=== PATIENT | female | born 1990 | race Caucasian/White ===

== ENCOUNTER 2017-12-17 01:15 | Outpatient (CLI) | payer BC ==
[2017-12-17 02:01] VITALS: BP 117/68; PULSE 107; RESP 16; TEMP 97.6
--- NOTE | 2017-12-17 03:13 | P.MSEPDOC ---
Presenting Problems - Arrival Data Date of Arrival on Unit: 12/17/17 Time of Arrival on Unit: 01:19 Mode of Transport: Wheelchair - Complaint OB-Reason for Admission/Chief Complaint: Other Comment: URI, ear infection, sinus sx. cramping since 1000, mild, with activity , since coughing. no pain when sitting down. Medical History - Information : 2 Para: 1 Term: 1 : 0 Abortions: Spontaneous or Elective: 0 Number of Living Children: 1 - Gestational Age Gestational Age by ANJALI (wks/days): 22 Weeks and 3 Days Review of Systems - Review of Systems Constitutional: No problems Breast: No problems ENT: Sore throat, Cough, Nasal congestion Cardiovascular: No problems Respiratory: No problems Gastrointestinal: No problems Genitourinary: No problems Musculoskeletal: No problems Neurological: No problems Skin: No problems Vital Signs - Temperature Temperature: 97.6 F Temperature Source: Temporal Artery Scan - Pulse Right Pulse Rate: 107 Pulse Assessment Method: Pulse Oximetry - Respirations Respiratory Rate: 16 O2 Sat by Pulse Oximetry: 98 - Blood Pressure Right Arm Blood Pressure: 117/68 Blood Pressure Mean: 84 Blood Pressure Source: Automatic Cuff Medical Screen Scoring (Pre) - Cervical Exam Dilation: Exam Deferred Effacement: Exam Deferred - Uterine Contractions Frequency: N/A Duration: N/A Intensity: N/A - Maternal Vital Signs Maternal Temperature: N/A Signs of Preeclampsia: N/A Maternal Respirations: N/A - Pain Assessment Pain Location and Character: Abdomen Pain Scale Used: Numeric (1 - 10) Pain Intensity: 0 Pain Management Goal: 3 Pain Description: *Acute, Cramping Pain Frequency: Occasional Pain Duration: 14 Pain Duration Units: Hours Pain Behavior: Vocalization Pain Aggravating Factors: Activity, Coughing - Maternal Trauma Maternal Trauma: N/A - Assessment Baseline FHR: 160 - Total Score Total Score (Pre): 0 - Level of Risk Level of Risk: Low (0-5) Physician Notification (Pre) - Physician Notified Physician Notified Date: 12/17/17 Physician Notified Time: 01:44 Physician/Practitioner Notifed:: Dr Abernathy - Notification Comment Comment: reported on pts c/o URI sx, cramping occasionally with activity, since 1000. reported on abd being soft and non tender, afebrile, vitals stable, +fm, no bleeding or leaking. orders to d/c and encourage to f/u in ER for URI. Disposition - Disposition OB Disposition: Discharge to home, Written follow up instructions reviewed Discharge Date: 12/17/17 Discharge Time: 01:54 I agree with the RN Medical Screening Exam: Yes Risk & Benefit of care provided described in d/c instruction: Yes Diagnosis: COUGH
== END 2017-12-17 01:54 | disposition home or self-care (01) ==
LOC: FBPOP 01:15
PROVIDERS: ATTEND Obstetrics & Gynecology
DX: O99.89 Other specified diseases and conditions complicating pregnancy, childbirth and the puerperium (principal); R05 Cough; H66.90 Otitis media, unspecified, unspecified ear; Z3A.22 22 weeks gestation of pregnancy
CPT/HCPCS: 99213

== ENCOUNTER 2017-12-17 01:55 | Emergency (ER) | payer BC ==
[2017-12-17] MEDS ORDERED: AMOXICILLIN 500MG STARTER PACK 3 CAP BTL PO STA (02:45)
[2017-12-17] MEDS ORDERED: ACETAMINOPHEN TAB 500 MG TAB PO STA (02:45)
--- NOTE | 2017-12-17 02:51 | ED ---
URI HPI - General Chief Complaint: Upper Respiratory Infection Stated Complaint: Chest Pain/ENT Time Seen by Provider: 12/17/17 02:11 Source: patient, RN notes reviewed, old records reviewed Mode of arrival: ambulatory Limitations: no limitations - History of Present Illness Initial Comments: Patient is a 27 year old female with 4 days of right ear pain, cough , congestion, and sore throat. She is 21 weeks . She states she was cleared by labor adn delivery, due to cramping she had earlier today. She denies fever or chills. She reports she felt a bit dizzy earlier today and felt as if the room was spinning. She has not taken tylenol or other medication due to . - Related Data Home Medications Medication Instructions Recorded Confirmed Pnv,Calcium 72/Iron/Folic Acid 1 tab PO DAILY 02/15/16 12/17/17 [ Plus Tablet] Allergies Allergy/AdvReac Type Severity Reaction Status Date / Time No Known Allergies Allergy Verified 12/17/17 02:02 Review of Systems ROS Statement: Those systems with pertinent positive or pertinent negative responses have been documented in the HPI. ROS Other: All systems not noted in ROS Statement are negative. Constitutional: Denies: fever, chills Eyes: Denies: eye pain ENT: Reports: ear pain, throat pain. Denies: dental pain, hearing loss, epistaxis Respiratory: Reports: cough. Denies: dyspnea Cardiovascular: Denies: chest pain, palpitations Endocrine: Reports: fatigue Gastrointestinal: Denies: abdominal pain, nausea Genitourinary: Denies: urgency, dysuria Musculoskeletal: Denies: back pain Skin: Denies: lesions Neurological: Denies: weakness Psychiatric: Denies: anxiety, depression Hematological/Lymphatic: Denies: easy bleeding Past Medical History Past Medical History: No Reported History Additional Past Medical History / Comment(s): OB history: This is her first and she has had care with me since 13 weeks. EDC by 13 week US. B+, abs neg, Rub Imm, RPR NR, Hep B neg, HIV NR. normal anatomy US. normal 1hr GTT. GBS neg. History of Any Multi-Drug Resistant Organisms: None Reported Additional Past Surgical History / Comment(s): nose 2007 Past Anesthesia/Blood Transfusion Reactions: No Reported Reaction Past Psychological History: No Psychological Hx Reported Smoking Status: Never smoker Past Alcohol Use History: None Reported Past Drug Use History: None Reported - Past Family History Mother Family Medical History: No Reported History General Exam - General Exam Comments Initial Comments: This is a 27 year old female, currently 21 weeks . No distress. Limitations: no limitations General appearance: alert, in no apparent distress Head exam: Present: atraumatic, normocephalic, normal inspection Eye exam: Present: normal appearance, PERRL, EOMI. Absent: scleral icterus, conjunctival injection, periorbital swelling ENT exam: Present: normal exam, normal oropharynx, mucous membranes moist. Absent: TM's normal bilaterally (Erythema in right TM with effusion fluid level noted. ) Neck exam: Present: normal inspection, lymphadenopathy (right tonsilar). Absent : tenderness, meningismus Respiratory exam: Present: normal lung sounds bilaterally. Absent: respiratory distress, wheezes, rales, rhonchi, stridor Cardiovascular Exam: Present: regular rate, normal rhythm, normal heart sounds. Absent: systolic murmur, diastolic murmur, rubs, gallop, clicks GI/Abdominal exam: Present: soft, normal bowel sounds. Absent: distended, tenderness, guarding, rebound, rigid Extremities exam: Present: normal inspection, full ROM, normal capillary refill. Absent: tenderness, pedal edema, joint swelling, calf tenderness Neurological exam: Present: alert, oriented X3, CN II-XII intact Psychiatric exam: Present: normal affect, normal mood Skin exam: Present: warm, dry, intact, normal color. Absent: rash Course Vital Signs 12/17/17 12/17/17 01:58 02:54 Temperature 97.7 F 97 F L Pulse Rate 107 H 78 Respiratory 20 18 Rate Blood Pressure 109/71 131/71 O2 Sat by Pulse 98 97 Oximetry Medical Decision Making - Medical Decision Making Patient is a 27 year old female with 4 days of right ear pain, cough ,congestion , and sore throat. She is 21 weeks . She states she was cleared by labor adn delivery, due to cramping she had earlier today. She denies fever or chills. She reports she felt a bit dizzy earlier today and felt as if the room was spinning. Patient does have right otitis media, lymphadenopathy noted. Dsicussed could be viral, and patient dizziness is likely related to vertigo due to ear infection. Lungs are clear. Discussed at this time to treat patient symptoms and will treat with amoxicillin, benadryl for decongestant, and tylenol. Discussed strict return parameters and all questions answered. Disposition Clinical Impression: Right otitis media Disposition: HOME SELF-CARE Condition: Good Instructions: Otitis Media (ED) Additional Instructions: Patient to takeTylenol for her pain. Patient also take Benadryl. Return to the emergency department if any alarming signs or symptoms occur. Referrals: None,Stated [Primary Care Provider] - 1-2 days Lexi Hernandez MD [STAFF PHYSICIAN] - 1-2 days Time of Disposition: 02:50
[2017-12-17 02:55] VITALS: BP 131/71; PULSE 78; RESP 18; TEMP 97
== END 2017-12-17 02:55 | disposition home or self-care (01) ==
LOC: EC 01:55
DX: O99.89 Other specified diseases and conditions complicating pregnancy, childbirth and the puerperium (principal); H66.91 Otitis media, unspecified, right ear; R59.0 Localized enlarged lymph nodes; Z3A.21 21 weeks gestation of pregnancy; Z79.899 Other long term (current) drug therapy
CPT/HCPCS: 99283

== ENCOUNTER 2018-04-04 11:01 | Outpatient (CLI) | payer BC ==
[2018-04-04 11:25] VITALS: BP 106/62; PULSE 98; RESP 16; TEMP 97.3
--- NOTE | 2018-04-05 08:09 | P.MSEPDOC ---
Presenting Problems - Arrival Data Date of Arrival on Unit: 04/04/18 Time of Arrival on Unit: 11:00 Mode of Transport: Ambulatory - Complaint OB-Reason for Admission/Chief Complaint: NST Medical History - Information : 2 Para: 1 Term: 1 : 0 Abortions: Spontaneous or Elective: 0 Number of Living Children: 1 - Gestational Age Gestational Age by ANJALI (wks/days): 36 Weeks and 2 Days - History Comment: cholestasis of Review of Systems - Review of Systems Constitutional: No problems Breast: No problems ENT: No problems Cardiovascular: No problems Respiratory: No problems Gastrointestinal: No problems Genitourinary: No problems Musculoskeletal: No problems Neurological: No problems Skin: Itching Vital Signs - Temperature Temperature: 97.3 F Temperature Source: Temporal Artery Scan - Pulse Right Pulse Rate: 98 Pulse Assessment Method: Automatic Cuff - Respirations Respiratory Rate: 16 Oxygen Delivery Method: Room Air O2 Sat by Pulse Oximetry: 98 - Blood Pressure Right Arm Blood Pressure: 106/62 Blood Pressure Mean: 76 Blood Pressure Source: Automatic Cuff Medical Screen Scoring (Pre) - Cervical Exam Dilation: Exam Deferred - Uterine Contractions Frequency: N/A Duration: N/A Intensity: N/A - Maternal Vital Signs Maternal Temperature: N/A Maternal Blood Pressure: N/A Signs of Preeclampsia: N/A Maternal Respirations: N/A - Pain Assessment Pain Behavior: None Exhibited - Maternal Trauma Maternal Trauma: N/A - Assessment Baseline FHR: 155 - Total Score Total Score (Pre): 0 - Level of Risk Level of Risk: Low (0-5) Physician Notification (Pre) - Physician Notified Physician Notified Date: 04/04/18 Physician Notified Time: 11:46 Physician/Practitioner Notifed:: arjun New Order Received: Yes - Notification Comment Comment: dr díaz reviewed strip from office. pt may be discharged home Disposition - Disposition OB Disposition: Discharge to home Discharge Date: 04/04/18 Discharge Time: 12:02 I agree with the RN Medical Screening Exam: Yes Risk & Benefit of care provided described in d/c instruction: Yes Diagnosis: LIVER AND BILIARY TRACT DISORD IN , UNSP TRIMESTER
== END 2018-04-04 12:03 | disposition home or self-care (01) ==
LOC: FBPOP 11:01
PROVIDERS: ATTEND Obstetrics & Gynecology
DX: O26.613 Liver and biliary tract disorders in pregnancy, third trimester (principal); Z3A.36 36 weeks gestation of pregnancy
CPT/HCPCS: 59025; 99213

== ENCOUNTER 2018-04-10 06:10 | Inpatient (IN) | payer BC ==
--- NOTE | 2018-04-09 08:38 | P.HPOB ---
History of Present Illness H&P Date: 04/09/18 Chief Complaint: Cholestasis 27 year old presents at 37 weeks for repeat low transverse with tubal ligation. She has been diagnosed with cholestasis of which is why she is being delivered at 37 weeks. Review of Systems All systems: negative Constitutional: Denies chills, Denies fever Eyes: denies blurred vision, denies pain Ears, nose, mouth and throat: Denies headache, Denies sore throat Cardiovascular: Denies chest pain, Denies shortness of breath Respiratory: Denies cough Gastrointestinal: Denies abdominal pain, Denies diarrhea, Denies nausea, Denies vomiting Genitourinary: Denies dysuria, Denies hematuria Musculoskeletal: Denies myalgias Integumentary: Denies pruritus, Denies rash Neurological: Denies numbness, Denies weakness Psychiatric: Denies anxiety, Denies depression Endocrine: Denies fatigue, Denies weight change Past Medical History Past Medical History: No Reported History Additional Past Medical History / Comment(s): OB history: First she was delivered by c/s. This is her second and she has had care with ca since 10 weeks. B+, abs neg, Rub Imm, RPR NR, Hep B neg, HIV NR. normal anatomy US. normal 1hr GTT. GBS neg. At 29 weeks she was diagnosed with cholestasis. She has been followed with BPPs and NSTs which have all been reassuring. History of Any Multi-Drug Resistant Organisms: None Reported Past Surgical History: Section Additional Past Surgical History / Comment(s): nose 2007 Past Anesthesia/Blood Transfusion Reactions: No Reported Reaction Past Psychological History: No Psychological Hx Reported Smoking Status: Never smoker Past Alcohol Use History: None Reported Past Drug Use History: None Reported - Past Family History Mother Family Medical History: No Reported History Medications and Allergies Home Medications Medication Instructions Recorded Confirmed Type Pnv,Calcium 72/Iron/Folic Acid 1 tab PO DAILY 02/15/16 12/17/17 History [ Plus Tablet] Allergies Allergy/AdvReac Type Severity Reaction Status Date / Time No Known Allergies Allergy Verified 12/17/17 02:02 Exam Osteopathic Statement: *. No significant issues noted on an osteopathic structural exam other than those noted in the History and Physical/Consult. Heart: RRR Lungs: CTAB Abdomen: soft, nontender Extremeties: neg stefania's Assessment and Plan (1) 37 weeks gestation of Status: Acute Code(s): Z3A.37 - 37 WEEKS GESTATION OF SNOMED Code( s): 61491551 (2) Cholestasis during in third trimester Status: Acute Code(s): O26.613 - LIVER AND BILIARY TRACT DISORD IN , THIRD TRIMESTER; K83.1 - OBSTRUCTION OF BILE DUCT SNOMED Code(s): 719630087 (3) Previous delivery affecting Status: Acute Code(s): O34.219 - MATERNAL CARE FOR UNSP TYPE SCAR FROM PREVIOUS DEL SNOMED Code(s): 871922354 (4) Family planning Status: Acute Code(s): Z30.09 - ENCOUNTER FOR OTH GENERAL CNSL AND ADVICE ON CONTRACEPTION SNOMED Code(s): 932932686 Plan: 1. repeat low transverse with tubal ligation
[2018-04-09 13:36] VITALS: BMI 29.9
[2018-04-10] MEDS ORDERED: ceFAZolin IN SWFI 2 GM/20 ML SYRINGE IVP ONE (06:25)
[2018-04-10] MEDS ORDERED: CITRIC ACID-SODIUM CITRATE 15 ML CUP PO ONE (06:25)
[2018-04-10 06:47] LABS: Basophils % (A) 0 %; Eosinophils # (A) 0.1 k/uL (0-0.7); Eosinophils % (A) 1 %; HCT 36.4 % (34.0-46.0); HGB 12.4 gm/dL (11.4-16.0); Lymphocytes # (A) 2.3 k/uL (1.0-4.8); Lymphocytes % (A) 29 %; MCH 27.2 pg (25.0-35.0); MCHC 34.1 g/dL (31.0-37.0); MCV 79.7 fL (80.0-100.0); Mean Platelet Volume 8.9; Monocytes # (A) 0.4 k/uL (0-1.0); Monocytes % (A) 5 %; Neutrophils % (A) 62 %; Platelet Count 186 k/uL (150-450); RBC 4.56 m/uL (3.80-5.40); RDW 13.6 % (11.5-15.5)
[2018-04-10] MEDS: LACTATED RINGERS 1,000 ML IV SCH ×4 (07:19→20:02)
[2018-04-10] MEDS ORDERED: ONDANSETRON 4 MG/2 ML VIAL ONE (07:52)
[2018-04-10] MEDS ORDERED: OXYTOCIN 10 UNIT/ML 1 ML VIAL ONE (07:52)
[2018-04-10] MEDS ORDERED: NALBUPHINE 10 MG/ML AMPUL ONE (07:52)
[2018-04-10] MEDS ORDERED: MORPHINE SULFATE (PF) 0.3 MG/0.3 ML SYR ONE (07:52)
[2018-04-10] MEDS ORDERED: KETOROLAC 30 MG/ML 1 ML VIAL ONE (07:52)
[2018-04-10] MEDS ORDERED: NALOXONE 0.4 MG/ML 1 ML VIAL IV PRN (08:35)
[2018-04-10] MEDS ORDERED: diphenhydrAMINE 50 MG CAP PO PRN (08:35)
[2018-04-10] MEDS ORDERED: ZOLPIDEM 5 MG TAB PO PRN ×2 (08:35→19:48)
[2018-04-10] MEDS ORDERED: ACETAMINOPHEN TAB 325 MG TAB PO PRN (08:35)
[2018-04-10] MEDS ORDERED: SIMETHICONE 80 MG CHEWABLE PO PRN (08:35)
[2018-04-10] MEDS ORDERED: diphenhydrAMINE 25 MG CAP PO PRN (08:35)
[2018-04-10] MEDS ORDERED: METOCLOPRAMIDE 5 MG/ML 2 ML VIAL IVP PRN (08:35)
[2018-04-10] MEDS ORDERED: ONDANSETRON 4 MG/2 ML VIAL IVP PRN (08:35)
[2018-04-10] MEDS ORDERED: LANOLIN CREAM 5 GM TUBE TOPICAL PRN (08:35)
[2018-04-10] MEDS ORDERED: diphenhydrAMINE 50 MG/ML 1 ML VIAL IVP PRN ×2 (08:35)
--- NOTE | 2018-04-10 08:41 | P.OP ---
Date of Procedure: 04/10/18 Preoperative Diagnosis: 1. at 37 weeks 2. previous 3. family planning 4. cholestasis of Postoperative Diagnosis: same Procedure(s) Performed: Repeat low transverse with tubal ligation Anesthesia: spinal Surgeon: Payal Abernathy Estimated Blood Loss (ml): 500 IV fluids (ml): 1,300 Urine output (ml): 100 Pathology: other (placenta) Condition: stable Disposition: floor Operative Findings: viable male, 9,9, weight 6#2oz Description of Procedure: Patient was taken to the operating room where spinal anesthesia was found be adequate. She was prepped and draped in normal sterile fashion in dorsal supine position with a leftward tilt. Pfannenstiel skin incision was made the scalpel and carried through to the underlying layer of fascia with the scalpel. Fascia was incised in midline and carried bilaterally with the Green scissors. The superior aspect of the fascial incision was grasped with Alma clamps elevated and the underlying rectus muscles dissected off with the Green's. Attention was then turned to inferior aspect of same incision which in a similar fashion was grasped tented up and the underlying rectus muscles dissected off with the Green's. The rectus muscles were the midline and the peritoneum was identified tented up and entered sharply with the scalpel. The incision was extended superiorly and inferiorly with good visualization of the bladder. The bladder blade was inserted and the vesicouterine peritoneum was incised the Metzenbaums then carried bilaterally and bladder flap created digitally. A low transverse incision was then made on the uterus with the scalpel. This was carried bilaterally and digital manner. 's head delivered atraumatically, nose and mouth bulb suctioned, cord clamped and cut, handed off to waiting nurses. Apgars 9,9, weight 6 lbs. 2oz. Placenta delivered manually, intact with three-vessel cord. The uterus is exteriorized and cleared of all clots and debris. The uterine incision was closed with 0 Vicryl in a running locked fashion. Second layer of the same sutures used in imbricating fashion to obtain excellent hemostasis. Bladder flap was then reapproximated using 2-0 Vicryl in a running fashion. Both ovaries and tubes appeared normal. The right fallopian tube was grasped with a hemostat and a window was made in the mesosalpinx with the Bovie. The right fallopian tube was doubly ligated with 0 Vicryl and a portion was removed. The pedicles were cauterized with the Bovie. The left fallopian tube was grasped with a hemostat and a window was made in the mesosalpinx with the Bovie. The left fallopian tube was doubly ligated with 0 Vicryl and a portion was removed. The pedicles were cauterized with the Bovie. The uterus was placed back into the abdomen. The peritoneum was reapproximated using 2-0 Vicryl in a running fashion. The muscles were reapproximated using 2-0 Vicryl in interrupted fashion. The fascia was reapproximated using 0 Vicryl in a running fashion. The subcutaneous tissues closed with 3-0 Vicryl running fashion. The skin was closed tigre. Patient tolerated the procedure well, sponge and instrument counts were correct times 2 and she was taken to the recovery room in stable condition.
[2018-04-10] MEDS ORDERED: OXYTOCIN 20 UNITS/1000 ML NS 1,000 ML IV SCH (08:45)
[2018-04-10] MEDS ORDERED: NALBUPHINE 10 MG/ML AMPUL IV PRN (09:10)
[2018-04-10] MEDS: SENNOSIDES-DOCUSATE SODIUM 1 EACH TAB PO SCH (20:03)
[2018-04-10] MEDS: KETOROLAC 30 MG/ML 1 ML VIAL IVP PRN (20:03)
[2018-04-11 06:46] LABS: Basophils % (A) 0 %; Eosinophils # (A) 0.1 k/uL (0-0.7); Eosinophils % (A) 1 %; HCT 31.4 % (34.0-46.0); HGB 10.4 gm/dL (11.4-16.0); Lymphocytes # (A) 1.2 k/uL (1.0-4.8); Lymphocytes % (A) 17 %; MCH 26.7 pg (25.0-35.0); MCHC 32.9 g/dL (31.0-37.0); Mean Platelet Volume 9.9; Monocytes # (A) 0.4 k/uL (0-1.0); Monocytes % (A) 6 %; Neutrophils # (A) 5.2 k/uL (1.3-7.7); Neutrophils % (A) 75 %; Platelet Count 140 k/uL (150-450); RBC 3.88 m/uL (3.80-5.40); RDW 13.6 % (11.5-15.5); WBC 6.9 k/uL (3.8-10.6)
[2018-04-11] MEDS: SENNOSIDES-DOCUSATE SODIUM 1 EACH TAB PO SCH ×2 (09:01→22:08)
[2018-04-11] MEDS: KETOROLAC 30 MG/ML 1 ML VIAL IVP PRN (09:01)
--- NOTE | 2018-04-11 09:46 | P.PNOBGPC ---
Subjective - Subjective Principal diagnosis: S/P RLTCS with TL POD #1 Interval history: Patient seen and examined. Denies nausea, vomiting, chest pain, shortness of breath or calf pain. She is ambulating and voiding without difficulty. Tolerating regular diet and passing flatus. Her did have some respiratory issues and was shipped to a tertiary facility for care. Patient reports: Reports appetite normal, Reports voiding normally, Reports pain well controlled, Reports ambulating normally Objective - Vital Signs Latest vital signs: Vital Signs Temp Pulse Resp BP Pulse Ox 04/11/18 06:00 14 04/11/18 04:10 98.5 F 81 16 110/63 04/11/18 02:00 16 04/11/18 00:05 98.3 F 92 16 97/63 98 04/10/18 22:16 16 99 04/10/18 19:45 98.0 F 86 16 106/69 98 04/10/18 18:00 17 99 04/10/18 16:00 98.9 F 86 16 109/60 04/10/18 14:05 98 04/10/18 14:00 16 98 04/10/18 12:40 97.9 F 78 16 105/57 04/10/18 12:05 16 04/10/18 10:37 80 16 110/59 98 04/10/18 10:07 80 16 105/57 04/10/18 10:05 16 98 Intake and Output 04/10/18 04/11/18 04/11/18 22:59 06:59 14:59 Intake Total 600 Output Total 500 300 Balance -500 300 Intake: Other 600 Output: Urine 500 300 - Exam Lungs: bilateral: normal Chest: Normal S1, Normal S2 Extremities: Present: normal Abdomen: Present: normal appearance, soft. Absent: distention, tenderness Incision: Present: normal, dry, intact Uterus: Present: normal, firm - Labs Labs: Abnormal Lab Results - Last 24 Hours (Table) 04/11/18 Range/Units 06:34 Hgb 10.4 L (11.4-16.0) gm/dL Hct 31.4 L (34.0-46.0) % Plt Count 140 L (150-450) k/uL Assessment and Plan (1) 37 weeks gestation of Current Visit: Yes Status: Resolved Code(s): Z3A.37 - 37 WEEKS GESTATION OF SNOMED Code(s): 43450853 (2) Cholestasis during in third trimester Current Visit: Yes Status: Resolved Code(s): O26.613 - LIVER AND BILIARY TRACT DISORD IN , THIRD TRIMESTER; K83.1 - OBSTRUCTION OF BILE DUCT SNOMED Code(s): 013117327 (3) Previous delivery affecting Current Visit: Yes Status: Resolved Code(s): O34.219 - MATERNAL CARE FOR UNSP TYPE SCAR FROM PREVIOUS DEL SNOMED Code(s): 631103619 (4) Family planning Current Visit: Yes Status: Resolved Code(s): Z30.09 - ENCOUNTER FOR OT GENERAL CNSL AND ADVICE ON CONTRACEPTION SNOMED Code(s): 816193213 (5) Status post repeat low transverse section Current Visit: Yes Status: Acute Code(s): Z98.891 - HISTORY OF UTERINE SCAR FROM PREVIOUS SURGERY SNOMED Code(s): 630329990 (6) Status post tubal ligation at time of delivery, current hosp Current Visit: Yes Status: Acute Code(s): O80 - ENCOUNTER FOR FULL-TERM UNCOMPLICATED DELIVERY; Z30.2 - ENCOUNTER FOR STERILIZATION SNOMED Code(s): 694721425 Plan: 1. Increase ambulation 2. Regular diet 3. Continue pain control with oral medication
--- NOTE | 2018-04-11 13:41 | P.PN ---
Progress Note - Text Date:04/11 Time: Patient is status post . Patient seen this morning with VAS score of 2.no c/o of pruritus, no c/o nausea/vomiting, comfortable and doing well.
[2018-04-11] MEDS: HYDROcodone/APAP 7.5-325MG 1 EACH TAB PO PRN ×2 (15:39→22:17)
[2018-04-11] MEDS: IBUPROFEN 600 MG TAB PO PRN (19:09)
[2018-04-12] MEDS: IBUPROFEN 600 MG TAB PO PRN ×2 (03:19→10:52)
[2018-04-12] MEDS: HYDROcodone/APAP 7.5-325MG 1 EACH TAB PO PRN (06:57)
[2018-04-12 07:49] VITALS: BP 108/67; PULSE 71; RESP 18; TEMP 97.5
[2018-04-12] MEDS: SENNOSIDES-DOCUSATE SODIUM 1 EACH TAB PO SCH (08:00)
--- NOTE | 2018-04-12 10:40 | P.DS ---
Providers Date of admission: 04/10/18 06:10 Expected date of discharge: 04/12/18 Attending physician: Payal Abernathy Primary care physician: Stated None - Discharge Diagnosis(es) (1) 37 weeks gestation of Current Visit: Yes Status: Resolved (2) Cholestasis during in third trimester Current Visit: Yes Status: Resolved (3) Previous delivery affecting Current Visit: Yes Status: Resolved (4) Family planning Current Visit: Yes Status: Resolved (5) Status post repeat low transverse section Current Visit: Yes Status: Acute (6) Status post tubal ligation at time of delivery, current hosp Current Visit: Yes Status: Acute Hospital Course: Patient presented for repeat low transverse with tubal ligation at 37 weeks due to cholestasis of and previous section. She underwent this procedure without complication. Her course went very well her pain was well-controlled with oral medications and she was ambulating voiding without difficulty. She is tolerating regular diet and passing flatus. Her incision is clean, dry, intact with tigre which will be removed today as she is discharged home. She delivered a viable male with Apgars of 9 , 9, but he required increased levels of oxygen as he was having more difficulty breathing. He was transferred to a tertiary facility for management. Yanci will be discharged home post operative day #2 in stable condition to follow-up with me in one week. Plan - Discharge Summary Discharge Rx Participant: Yes New Discharge Prescriptions: New HYDROcodone/APAP 7.5-325MG [[place] 7.5-325] 1 each PO Q6H PRN #30 tab PRN Reason: Severe Pain Ibuprofen [Motrin] 600 mg PO Q6HR PRN #30 tab PRN Reason: Mild Pain Or Fever >= 100.5 No Action Pnv,Calcium 72/Iron/Folic Acid [ Plus Tablet] 1 tab PO DAILY Discharge Medication List Pnv,Calcium 72/Iron/Folic Acid [ Plus Tablet] 1 tab PO DAILY 02/15/16 [ History] HYDROcodone/APAP 7.5-325MG [[place] 7.5-325] 1 each PO Q6H PRN #30 tab 04/11/18 [ Rx] Ibuprofen [Motrin] 600 mg PO Q6HR PRN #30 tab 04/11/18 [Rx] Follow up Appointment(s)/Referral(s): Payal Abernathy DO [Doctor of Osteopathic Medicine] - 1 Week Discharge Disposition: HOME SELF-CARE
== END 2018-04-12 11:20 | disposition home or self-care (01) | DRG 765 ==
LOC: 4FBP 06:10
PROVIDERS: ADMIT Obstetrics & Gynecology; ATTEND Obstetrics & Gynecology
PROC: 0UB70ZZ Excision of Bilateral Fallopian Tubes, Open Approach (ICD-10-PCS; principal; 2018-04-10 08:00)
PROC: 10D00Z1 Extraction of Products of Conception, Low, Open Approach (ICD-10-PCS; principal; 2018-04-10 08:00)
DX: O26.62 Liver and biliary tract disorders in childbirth (principal); K83.1 Obstruction of bile duct; Z37.0 Single live birth; O34.211 Maternal care for low transverse scar from previous cesarean delivery; Z30.2 Encounter for sterilization; Z3A.37 37 weeks gestation of pregnancy
CPT/HCPCS: 85025; 86850; 86900; 86901; 88302; 88307

== ENCOUNTER → 2024-02-26 | Outpatient (CLI) | payer BC ==
--- NOTE | 2024-02-26 22:56 | XR ---
EXAMINATION TYPE: XR foot complete LT DATE OF EXAM: 02/26/2024 COMPARISON: Pain HISTORY: Pain TECHNIQUE: Three-view left foot FINDINGS: No acute fracture or dislocation evident. Joint spaces are preserved. Soft tissues appear n ormal. Follow up exams can be performed 7-10 days from acute trauma for continued pain. IMPRESSION: 1. No acute osseous abnormality left foot
== END | disposition home or self-care (01) ==
LOC: RADXRMAIN 12:28
PROVIDERS: ATTEND Family Medicine
DX: S99.922A Unspecified injury of left foot, initial encounter (principal); M79.672 Pain in left foot; X58.XXXA Exposure to other specified factors, initial encounter